=== PATIENT | male | born 1985 | race Caucasian/White ===

== ENCOUNTER 2019-11-07 18:28 | Emergency (ER) | payer OTHER ==
[2019-11-07 18:44] VITALS: BP 114/58
--- NOTE | 2019-11-07 18:59 | UC ---
Ear Complaint HPI - HPI Summary HPI Summary: Patient is a 34yo male presenting with fiance for L ear fullness and decreased hearing x2 weeks. Patient notes "L ear pain and painful lump behind ear x1 week. " States he is here today because ear pain has worsened and lump is larger. Patient states he "thinks he may have an ear infection. Denies drainage from the ear. Denies R ear symptoms. Denies URI symptoms. Denies allergies. Denies fever and chills. Notes h/o ear infections in the past. States he took 800mg of ibuprofen earlier with some pain relief. - History of Current Complaint Chief Complaint: UCEar Stated Complaint: LEFT EAR PAIN Hx Obtained From: Patient Onset/Duration: Gradual Onset, Lasting Weeks Severity Initially: Mild Severity Currently: Moderate Pain Intensity: 4 Pain Scale Used: 0-10 Numeric - Allergies/Home Medications Allergies/Adverse Reactions: Allergies Allergy/AdvReac Type Severity Reaction Status Date / Time amoxicillin [From Augmentin] Allergy Unknown Unknown Verified 11/07/19 18:39 Reaction Details cefuroxime [From Ceftin] Allergy Unknown Unknown Verified 11/07/19 18:39 Reaction Details clavulanic acid Allergy Unknown Unknown Verified 11/07/19 18:39 [From Augmentin] Reaction Details Penicillins Allergy Unknown Unknown Verified 11/07/19 18:39 Reaction Details PMH/Surg Hx/FS Hx/Imm Hx - Surgical History Surgical History: Yes Surgery Procedure, Year, and Place: NASAL SX. TONSILECTOMY - Family History Known Family History: Positive: Hypertension - Social History Alcohol Use: None Substance Use Type: None Smoking Status (MU): Heavy Every Day Tobacco Smoker Type: Cigarettes Amount Used/How Often: 1 pack per day Length of Time of Smoking/Using Tobacco: 10 years Have You Smoked in the Last Year: Yes - is vaping When Did the Patient Quit Smoking/Using Tobacco: 1 month ago Household Exposure Type: Cigarettes - Immunization History Most Recent Influenza Vaccination: NOT UPT Review of Systems All Other Systems Reviewed And Are Negative: Yes Constitutional: Positive: Negative. Negative: Fever ENT: Positive: Ear Ache - L ear, Other - swollen painful lump behind ear. Negative: Sore Throat, Sinus Congestion Respiratory: Positive: Negative. Negative: Cough Cardiovascular: Positive: Negative Neurological: Positive: Negative Physical Exam Triage Information Reviewed: Yes Appearance: Well-Appearing, No Pain Distress, Well-Nourished Vital Signs: Initial Vital Signs Temp 97.8 F 11/07/19 18:40 Pulse 85 11/07/19 18:40 Resp 16 11/07/19 18:40 BP 114/58 11/07/19 18:40 Pulse Ox 100 11/07/19 18:40 Vital Signs Reviewed: Yes Eyes: Positive: Conjunctiva Clear ENT: Positive: Hearing grossly normal, Pharynx normal, TM bulging - left, TM red - left, Uvula midline, Other - TMs intact b/l. no drainage from L ear. Negative: Pharyngeal erythema, Nasal congestion, Nasal drainage, Tonsillar swelling, Tonsillar exudate Neck: Positive: Supple, Tenderness @ - L postauricular node, Enlarged Nodes @ - L postauricular node Respiratory Exam: Normal Respiratory: Positive: Lungs clear, Normal breath sounds, No respiratory distress Cardiovascular Exam: Normal Cardiovascular: Positive: RRR Neurological: Positive: Alert Psychological: Positive: Age Appropriate Behavior Skin Exam: Normal - no erythema or ecchymosis Ear Complaint Course/Dx - Course Course Of Treatment: Discussed AOM with patient. I treated with doxycycline, as patient states allergies to penicillins and cephalosporins. Instructed to apply hot packs to swollen node. Advised patient to follow up with [facility] or physician referral if symptoms persist. Patient voiced understanding and agreed with treatment plan. - Differential Dx/Diagnosis Provider Diagnosis: Acute otitis media, Lymphadenopathy, postauricular Discharge ED - Sign-Out/Discharge Documenting (check all that apply): Patient Departure All imaging exams completed and their final reports reviewed: No Studies - Discharge Plan Condition: Stable Disposition: HOME Prescriptions: DOXYcycline CAP(*) [DOXYcycline 100MG CAP(*)] 100 mg PO BID #10 cap Patient Education Materials: Ear Infection (ED) Referrals: [facility] [Outside] - If Needed [facility] [place] [facility] [place] [facility] [Outside] - If Needed Additional Instructions: Take doxycycline as prescibed for your ear infection. You may apply a warm compress to your swollen lymph node to help relieve pain. You may continue to take ibuprofen as directed for pain relief. Follow up with one of the referrals listed below if symptoms do not resolve within 7 days. - Billing Disposition and Condition Condition: STABLE Disposition: Home
== END 2019-11-07 19:23 | disposition home or self-care (01) ==
LOC: UCCORT 18:28
DX: H66.92 Otitis media, unspecified, left ear (principal); F17.210 Nicotine dependence, cigarettes, uncomplicated; R59.0 Localized enlarged lymph nodes; Z88.0 Allergy status to penicillin; Z88.1 Allergy status to other antibiotic agents
CPT/HCPCS: 99212; G0463